=== PATIENT | female | born 1980 | race Hispanic/Latino ===

== ENCOUNTER 2023-03-12 17:11 | Emergency (ER) | payer BC, OTHER ==
[~2023-03-12] VITALS: Ht 157.5 cm; Wt 74.8 kg
[2023-03-12] MEDS ORDERED: ACETAMINOPHEN 500 MG TABLET ONE (18:20)
[2023-03-12 18:32] VITALS: BP 139/88; PULSE 93; RESP 18; O2SAT 100
[2023-03-12] MEDS ORDERED: IBUP-1493 PO (19:27)
== END 2023-03-12 19:38 | disposition home or self-care (01) ==
LOC: EDH 17:11
DX: M79.671 Pain in right foot (principal)
CPT/HCPCS: 73630